=== PATIENT | male | born 1945 | race Caucasian/White ===

== ENCOUNTER 2018-07-23 19:12 | Emergency (ER) | payer MEDICARE, OTHER ==
[~2018-07-23] VITALS: Ht 182.9 cm; Wt 88.6 kg
[~2018-07-23 19:12] MED LIST: niCARDipine in NS 40mg/200ml (0.2mg/ml) IVPB IV ONE
--- NOTE | 2018-07-23 19:31 | NUR ---
Arrived just prior to pts return from [place]. Spouse reports pt c/o sudden onset of severe headache at a [employer] [facility]. drove him to the ED. Pt takes no prescription meds other than Viagra. Has H/O htn and sinus surgery. Currently is exhibiting receptive and expressive aphasia. Has right arm drift which comes and
--- NOTE | 2018-07-23 19:31 | NUR ---
pt to ct, navarro at bedside. [facility] 30 min ago reports Pt reported a sudden SALAS and they started saying "his head was really hurting...then said we need to leave" He was able to think of the name of someone but couldnt say it...he has no history of SALAS. Pt was able to walk to his car and taj brought him immediately after. Pt takes no blood thinners, does take Viagra.
[2018-07-23 19:39] LABS: BASOPHILS # (AUTO) 0.1 X10'3 (0-0.2); BASOPHILS % (AUTO) 0.7 % (0-1); EOSINOPHILS # (AUTO) 0.2 X10'3 (0-0.9); EOSINOPHILS % (AUTO) 3.1 % (0-6); HEMATOCRIT 39.9 % (42.0-52.0); HEMOGLOBIN 13.8 g/dl (14.0-17.9); LYMPHOCYTES # (AUTO) 3.4 X10'3 (1.1-4.8); LYMPHOCYTES % (AUTO) 44.9 % (21-51); MEAN CORPUSCULAR HEMOGLOBIN 32.7 PG (27.0-31.0); MEAN CORPUSCULAR HGB CONC 34.5 g/dL (33.0-36.5); MEAN CORPUSCULAR VOLUME 94.7 FL (78-98); MEAN PLATELET VOLUME 7.2 FL (7.4-10.4); MONOCYTES # (AUTO) 0.7 X10'3 (0-0.9); MONOCYTES % (AUTO) 9.2 % (2-12); NEUTROPHILS # (AUTO) 3.2 X10'3 (1.8-7.7); NEUTROPHILS % (AUTO) 42.1 % (42-75); PLATELET COUNT 245 X10'3 (140-440); RED BLOOD COUNT 4.22 X10'6 (4.70-6.10); RED CELL DISTRIBUTION WIDTH 13.9 % (11.5-14.5); WHITE BLOOD COUNT 7.6 X10'3 (4.5-11.0)
--- NOTE | 2018-07-23 19:41 | NUR ---
stroke rn , yari, at bedside. accucheck 102. dr. gallego at bedside.
[2018-07-23] MEDS ORDERED: niCARDipine-NS 40mg/200ml IVPB 200 ML IV SCH (19:45)
[2018-07-23 19:49] LABS: ALANINE AMINOTRANSFERASE 13 U/L (12-78); ALBUMIN 3.5 G/DL (3.4-5.0); ALBUMIN/GLOBULIN RATIO 0.9 (1.1-1.5); ALKALINE PHOSPHATASE 79 IU/L (46-116); ANION GAP 5 (8-16); ASPARTATE AMINO TRANSFERASE 10 U/L (10-37); BILIRUBIN,TOTAL 0.2 MG/DL (0.1-1.0); BLOOD UREA NITROGEN 18 MG/DL (7-18); BUN/CREATININE RATIO 20.7 (5.4-32.0); CALCIUM 9.3 MG/DL (8.5-10.1); CHLORIDE 105 MMOL/L (99-107); CREATININE 0.87 MG/DL (0.60-1.10); GLUCOSE 79 MG/DL (70-104); SODIUM 142 MMOL/L (135-145); TOTAL PROTEIN 7.4 G/DL (6.4-8.2); eGFR 87 ML/MIN
[2018-07-23 19:51] LABS: POTASSIUM 3.6 MMOL/L (3.5-5.1)
[2018-07-23 19:52] LABS: PARTIAL THROMBOPLASTIN TIME 25 SECONDS (22-32)
[2018-07-23 19:53] LABS: TROPONIN I < 0.04 NG/ML (0.0-0.05)
--- NOTE | 2018-07-23 20:20 | NUR ---
Report called to Julissa at [facility]. 2027 Pt transferred fully monitored via EMS to [facility]. Continues to exhibit receptive and expressive aphasia. Gaze is midline and pupils remain equal. Intermittent nausea. Subtle right arm drift which is not consistently present. Facial droop no longer present. Spouse instructed to go to [facility] waiting area. All personal belongings bagged and sent with spouse. BP upon arrival at [facility] 155/80 with NSR in the 80's. Cardene drip at 7.5mg/hr.
--- NOTE | 2018-07-23 20:22 | NUR ---
EMS IN ROUTE TO TRANSPORT PT CODE 3 TO [facility]. REPORT CALLED BY TWIN STROKE RN, TO [facility] TO [facility]. PTS REMAINS AT BEDSIDE. BP 162/86. CURRENT CARDIENE RATE INCREASED FROM 5 MG /HR TO 7.5 MG HR.
--- NOTE | 2018-07-23 20:25 | NUR ---
[facility] AT [facility] FOR TRANSPORT. REPORT TO EMS BY TWIN STROKE RN. [facility] PARK TO [facility] IN AMBULANCE PT ON CARDEDE GTT.
--- NOTE | 2018-07-23 20:32 | NUR ---
[facility]ORD[facility] MURCIA TO [facility]OMPANY EMS TO [facility] WITH PT.
[2018-07-23 20:33] VITALS: BP 154/60
== END 2018-07-23 20:36 | disposition short-term general hospital (02) ==
LOC: ER 19:12
DX: I61.8 Other nontraumatic intracerebral hemorrhage (principal); I60.8 Other nontraumatic subarachnoid hemorrhage; I10 Essential (primary) hypertension; Z56.0 Unemployment, unspecified; Z88.2 Allergy status to sulfonamides
CPT/HCPCS: 36415; 70450; 71045; 80053; 82948; 84484; 85025; 85610; 85730; 93005; 96365; 99291

== ENCOUNTER → 2023-04-03 | Outpatient (CLI) | payer OTHER, BC | END | disposition home or self-care (01) | LOC: RAD 14:32 | PROVIDERS: ATTEND Internal Medicine | DX: J98.6 Disorders of diaphragm (principal); J98.11 Atelectasis; I25.10 Atherosclerotic heart disease of native coronary artery without angina pectoris; I70.0 Atherosclerosis of aorta; M47.814 Spondylosis without myelopathy or radiculopathy, thoracic region | CPT/HCPCS: 71250 ==

== ENCOUNTER 2023-04-11 08:10 | Outpatient (CLI) | payer OTHER, BC ==
[2023-04-11 09:03] LABS: TOTAL HEMOGLOBIN 13.9 G/dl (14.0-17.9)
== END 2023-04-11 23:59 | disposition home or self-care (01) ==
LOC: RT 08:10
PROVIDERS: ATTEND Internal Medicine
DX: R06.02 Shortness of breath (principal)
CPT/HCPCS: 85018; 94010; 94727; 94729; J7030

== ENCOUNTER 2023-09-23 06:09 | Day surgery (SDC) | payer OTHER, BC ==
[2023-09-23] VITALS (8 sets, daily range): BP systolic 121–148; BP diastolic 73–84; PULSE 75–89; RESP 13–16; TEMP 98.4; O2SAT 94–100
[~2023-09-23] VITALS: Ht 188 cm; Wt 92.6 kg
[2023-09-23] MEDS: cefazolin 2gm/D5W 100mL 100 ML IV ONE (05:30)
[~2023-09-23 06:09] MED LIST changes: +AMLO2.5T2 PO; -niCARDipine in NS 40mg/200ml (0.2mg/ml) IVPB IV ONE
[2023-09-23] MEDS ORDERED: LIDOcaine 1% W/epiNEPHrine 1:100,000 20ml vial ONE (06:51)
[2023-09-23] MEDS ORDERED: oxymetazoline 15 ML nasal spray NS ONE (06:52)
[2023-09-23] MEDS ORDERED: mupirocin 2% ointment 22GM ONE (06:52)
[2023-09-23] MEDS ORDERED: cocaine 4% topical solution 4ml bottle ONE (06:52)
[2023-09-23] MEDS ORDERED: epiNEPHrine 1 mg/ml 30ml MDV ONE (06:53)
[2023-09-23] MEDS ORDERED: tranexamic acid 100mg/ml inj. ONE (06:53)
[2023-09-23] MEDS ORDERED: Thrombin (Bovine) 5,000 unit vial TP ONE (07:01)
[2023-09-23] MEDS: famotidine 20mg tablet PO ONE (07:20)
[2023-09-23] MEDS: ringers solution, lacted 1,000 ML IV SCH (07:22)
[2023-09-23] MEDS: oxymetazoline 15 ML nasal spray NS ONE (08:00)
[2023-09-23] MEDS: cocaine 4% topical solution 4ml bottle TP ONE (08:00)
[2023-09-23] MEDS ORDERED: fentaNYL/PF 50MCG/1 ML 2ML syringe ONE (08:12)
[2023-09-23] MEDS ORDERED: midazolam 1 mg/ML 2ml injection ONE (08:12)
[2023-09-23] MEDS ORDERED: propofol inj 20 ML IV ONE (08:15)
[2023-09-23] MEDS ORDERED: LIDOcaine 2% (20mg/ml) 5ml vial ONE (08:15)
[2023-09-23] MEDS ORDERED: dexamethasone sod phosphate 4mg/ml inj. ONE (08:32)
[2023-09-23] MEDS ORDERED: ePHEDrine 50MG/ML INJ. ONE (09:12)
[2023-09-23] MEDS ORDERED: ondansetron/PF 4mg/2ml inj ONE (09:12)
[2023-09-23] MEDS: salt irrigation nasal spray 45 ML SPRAY NS PRN (09:56)
[2023-09-23] MEDS ORDERED: oxymetazoline 15 ML nasal spray NS SCH (20:00)
== END 2023-09-23 10:20 | disposition home or self-care (01) ==
LOC: PAS 06:09
PROVIDERS: ATTEND Otolaryngology
DX: J32.8 Other chronic sinusitis (principal); I10 Essential (primary) hypertension; E66.9 Obesity, unspecified; J44.9 Chronic obstructive pulmonary disease, unspecified; G47.33 Obstructive sleep apnea (adult) (pediatric); Z86.73 Personal history of transient ischemic attack (TIA), and cerebral infarction without residual deficits; Z79.899 Other long term (current) drug therapy; Z68.26 Body mass index [BMI] 26.0-26.9, adult; Z88.2 Allergy status to sulfonamides
CPT/HCPCS: 31253; 61782; 70486; 82948; 87070; 87075; 93005; A6402; J0171; J0690; J1100; J2250; J2405; J2704; J3010; J3490; J7030; J7050; J7120; Z7506; Z7508; Z7512; 87077; 87186; A4618; A6449; A7000